=== PATIENT | male | born 1960 | race Caucasian/White ===

== ENCOUNTER 2023-10-15 08:04 | Emergency (ER) | payer OTHER, SELFPAY ==
--- NOTE | ~2023-10-15 | XR_ITS ---
EXAMINATION:XR foot RT min 3V VIEWS ACQUIRED: Frontal lateral and oblique CLINICAL INFORMATION: Reason for Exam pain COMPARISON: None available at the time of this dictation. FINDINGS: There is diffuse cortical thickening involving the diaphysis of the second third fourth and fifth metatarsal which could be indicative of underlying old prior stress fractures. No radiographic evidence of displaced fractures.. Intertarsal, tarsometatarsal, metatarsophalangeal and interphalangeal joints are intact. Surrounding soft tissues is normal. , XR/XR foot RT min 3V IMPRESSION: 1. Diffuse cortical thickening involving the diaphysis of the second third fourth and fifth metatarsals could be indicative of underlying old stress fractures. This could be further investigated with MRI or bone scan if clinically indicated. 2. No radiographic evidence of acute fracture.
[2023-10-15 08:07] VITALS: BP 165/90; PULSE 88; RESP 18; TEMP 36.1; O2SAT 98; BMI 32.1
--- NOTE | 2023-10-15 08:31 | ED_ITS ---
HPI - Extremity Problem General Chief complaint: Extremity Problem Stated complaint: R foot pain Time Seen by Provider: 10/15/23 08:22 Source: patient and RN notes reviewed Mode of arrival: ambulatory Limitations: no limitations History of Present Illness ED Provider: Lilia Marin PA-C [facility] Narrative: This is a 63-year-old male, with a history of hypertension, who presents emergency department with complaints of right foot pain. Patient states that in the 1980s he fractured his 2nd and 3rd metatarsal, which healed without any problems. Patient states that since yesterday he has noticed worsening plantar pain. He states that over the last several weeks he has felt as though he has had a marble in his shoe on the ball of his foot. He states that since yesterday he has had diffuse pain throughout the bottom of his foot. He endorses some slight numbness/tingling. No new trauma or injury. He states that his pain is worse in the morning, and worsens when he sits for prolonged period of time and stands back up onto his right foot. He denies any recent changes in shoe wear or prolonged walking or standing. Denies fevers, chills, chest pain, shortness breath, calf pain, swelling. He has been using ice and took ibuprofen 400 mg with some relief. No other complaints or concerns at this time. MD Complaint: extremity pain Onset (ago): day(s) Pain Consistency: constant Location: right and lower extremity Quality: aching Radiation: none Relieving factors: nothing Exacerbating factors: nothing Associated symptoms: denies other symptoms Related Data Previous Rx's ?Medication ?Instructions ?Recorded amlodipine 2.5 mg tablet 2.5 mg PO DAILY 90 days #90 tabs 04/26/21 benazepril 10 mg tablet 10 mg PO DAILY 90 days #90 tabs 04/26/21 ibuprofen 600 mg tablet 600 mg PO Q6H PRN pain #30 tabs 10/15/23 Allergies Allergy/AdvReac Type Severity Reaction Status Date / Time amoxicillin Allergy Unknown Hives Verified 10/15/23 08:10 Sulfa (Sulfonamide Allergy Unknown hives Verified 10/15/23 08:10 Antibiotics) Seasonal Allergy Unknown Hives Uncoded 10/15/23 08:10 Review of Systems Review of Systems: Yes all other systems are reviewed and are negative Constitutional: Constitutional: Reports as per [facility] Past Medical History Attestation statement: The following information was validated with the patient. Social History Social History Advance Directives: No Advance Directives Information Provided: No Physical Exam 2 Vital Signs: Vital Signs: Last Vital Signs Temp 97 F 10/15/23 08:07 Pulse 88 10/15/23 08:07 Resp 18 10/15/23 08:07 BP 165/90 H 10/15/23 08:07 Pulse Ox 98 10/15/23 08:07 O2 Del Method Room Air 10/15/23 08:07 BMI result Body Mass Index 32.1 Const: General: cooperative, comfortable and no acute distress Orientation/consciousness: patient oriented x3 Limitations: no limitations HEENT: Head: Yes normal to inspection, Yes normocephalic and Yes atraumatic Ears: hearing grossly normal bilaterally General nose exam: Normal external nose present Face and sinus: Yes normal facial exam Mouth: Normal oral and palatal mucosa present, oropharynx normal and moist mucous membranes Throat: Yes posterior oropharynx normal Eyes: General: appearance normal, both eyes and all related structures Eyelids: Yes eyelids normal Conjunctivae: conjunctivae normal Sclerae: sclerae normal Pupils: Equal, round and reactive pupils present EOM: EOMs intact bilaterally Neck: Neck: Yes normal visual inspection, Yes full ROM and Yes no lymphadenopathy Lymphatic: no lymphadenopathy noted Chest: Chest palpation & inspection: normal inspection of the chest Resp: Effort & Inspection: normal respiratory effort and able to speak in complete sentences Cardio: Rate: regular rate Rhythm: regular rhythm Heart sounds: S1 normal heart sound present and S2 normal heart sound present GI: Inspection: Yes normal to inspection Skin: General skin exam: no rashes or lesions noted Trauma: no lacerations or abrasions Wounds: no wounds Neuro: General: patient oriented x3 and moves all extremities Cranial nerves: Yes Equal, round and reactive pupils present Extrem: Other: Right foot with tenderness palpation along the plantar fascia, no bony abnormalities or swelling. No surrounding erythema or warmth. Strong DP pulse. Full range of motion of the ankle joint without difficulty. No dorsal bony tenderness. General: Yes normal to inspection Right upper extremity: normal to inspection Left upper extremity: normal to inspection Right lower extremity: normal to inspection Left lower extremity: normal to inspection Course Reevaluation(s) Reevaluation #1: X-rays revealing diffuse cortical thickening involving the diaphysis of the 2nd 3rd, 4th, and 5th metatarsals, could be indicative of underlying old stress fractures. I reviewed this image with the patient, recommending Podiatry as well as primary care follow-up. Discharged on ibuprofen. It is unclear whether not this cortical thickening will be causing him test pain therefore patient will be following up outpatient. Treating as a inflammatory process, likely plantar fasciitis like pain, with ibuprofen. Given return precautions. He understands and agrees with plan. Patient stable for discharge. Time: 10:15 Medical Decision Making Medical Decision Making [facility] Narrative: This is a 63-year-old male who presents emergency department for evaluation of right foot pain x 2 days. On arrival, patient with no fevers or chills. He is tenderness palpation along the plantar fascia. No recent injury or trauma however did have fracture in his metatarsals in the 1980s. Differential diagnoses include pain arthralgia, gouty arthritis, stress fracture, plantar fasciitis, Murillo's neuroma. Given stress fracture as well as tenderness along plantar aspect, will obtain x-rays for further information. Plan: X-rays Differential Diagnosis Differential Diagnoses: The differential diagnosis associated with the presentation includes See above Radiology Impression Discussion of test interpretation with radiology: I have reviewed the radiologist's reading. Radiologist Impression: XR/XR foot RT min 3V IMPRESSION: 1. Diffuse cortical thickening involving the diaphysis of the second third fourth and fifth metatarsals could be indicative of underlying old stress fractures. This could be further investigated with MRI or bone scan if clinically indicated. 2. No radiographic evidence of acute fracture. Discharge Plan Discharge Clinical Impression: Foot pain, right Patient Disposition: Home, Self-Care Instructions: Plantar Fasciitis (ED), Arthralgia (ED), Plantar Fasciitis Exercises (ED) Additional Instructions: You were seen in the emergency department due to right foot pain. Your x-ray does not show any fractures, however you do have Diffuse cortical thickening involving the diaphysis of the second third fourth and fifth metatarsals could be indicative of underlying old stress fractures. Given this finding I am recommending you follow-up with your primary care physician and/or Podiatry for further management and evaluation of this. Please take ibuprofen as prescribed, rest, ice, elevate and use cane at home as needed for pain. If you develop any new or worsening symptoms including increased redness, swelling, fevers, pain, chest pain, shortness of breath, please return for re- evaluation. Prescriptions: New ibuprofen 600 mg tablet 600 mg PO Q6H PRN (Reason: pain) Qty: 30 0RF No Action amlodipine 2.5 mg tablet 2.5 mg PO DAILY 90 Days Qty: 90 0RF benazepril 10 mg tablet 10 mg PO DAILY 90 Days Qty: 90 0RF Referrals: Jose Enrique Ramirez MD [Physician] - Discharge Date/Time: 10/15/23 10:15 Print Language: Kazakh
--- NOTE | 2023-10-15 10:01 | PC.NURSE ---
PROVIDER AT BEDSIDE TO REVIEW RADIOLOGY RESULTS, DISCUSSED DISCHARGE CARE PLAN
[2023-10-15 10:14] VITALS: BP 165/90; PULSE 88; RESP 18; TEMP 36.1
== END 2023-10-15 10:15 | disposition home or self-care (01) ==
PROVIDERS: Emergency Provider Student in an Organized Health Care Education/Training Program; PCP Internal Medicine
DX: M79.671 Pain in right foot (principal); R93.7 Abnormal findings on diagnostic imaging of other parts of musculoskeletal system; I10 Essential (primary) hypertension; Z87.81 Personal history of (healed) traumatic fracture
CPT/HCPCS: 73630; 99283

== ENCOUNTER 2023-10-19 09:59 | Emergency (ER) | payer OTHER, SELFPAY ==
--- NOTE | ~2023-10-19 | XR_ITS ---
EXAMINATION: XR FOOT, RIGHT CLINICAL INFORMATION: Pain COMPARISON: 10/15/2023 TECHNIQUE: AP, lateral, and oblique views of the right foot. FINDINGS: There is mild periosteal reaction seen along with an mid diaphysis of fourth and third metatarsal tarsal bones. No evidence of fractures. Soft tissues unremarkable. There are no changes of osteoarthritis. 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
[2023-10-19 10:05] VITALS: BP 160/86; PULSE 82; RESP 20; TEMP 36.4; O2SAT 98; BMI 32.1
[2023-10-19 11:31] VITALS: BP 144/87; PULSE 89; RESP 20; TEMP 36.7; O2SAT 100
--- NOTE | 2023-10-19 11:37 | ED.LOWEXIN ---
HPI - Extremity Injury (Lower) General Chief Complaint: Extremity Injury, Lower Stated Complaint: foot problem , was seen sunday Time Seen by Provider: 10/19/23 11:31 Source: patient and RN notes reviewed Mode of arrival: ambulatory Limitations: no limitations History of Present Illness ED Provider: Lilia Marin PA-C HPI Narrative: This is a 63-year-old male, with a history of hypertension and follicular lymphoma, who presents emergency department complaints of acute on chronic right foot pain. Patient reports that over the last several months he has had worsening foot pain without any known trauma or injury. He was seen in the emergency department 4 days ago for this complaint and was diagnosed with plantar fasciitis and foot pain and was given a prescription for ibuprofen and referral to Podiatry. He has been taking the ibuprofen with good relief, he has not followed up with Podiatry. He states that when he was getting out of his vehicle yesterday he stepped and felt a popping sensation in the bottom of his foot. He has had increased pain and swelling in his foot. He also states that he noticed some increased redness to the bottom of his foot with a possible rash. He reports pain worsens with ambulation and with weight-bearing. He had a 3rd and 4th metatarsal fracture when he was a child which did require surgery, otherwise no other surgeries. He is otherwise feeling well. No fevers, chills, chest pain, shortness of breath breath, abdominal pain, nausea, vomiting or diarrhea. No other complaints or concerns at this time MD complaint: foot injury Onset (ago): day(s) Place: home Severity: moderate Relieving factors: NSAID, cold therapy, immobilization and rest Exacerbating factors: weight bearing and movement Context: walking Associated symptoms: snap/pop sensation Other symptoms: none Related Data Previous Rx's ?Medication ?Instructions ?Recorded amlodipine 2.5 mg tablet 2.5 mg PO DAILY 90 days #90 tabs 04/26/21 benazepril 10 mg tablet 10 mg PO DAILY 90 days #90 tabs 04/26/21 ibuprofen 600 mg tablet 600 mg PO Q6H PRN pain #30 tabs 10/15/23 Allergies Allergy/AdvReac Type Severity Reaction Status Date / Time amoxicillin Allergy Unknown Hives Verified 10/19/23 10:11 Sulfa (Sulfonamide Allergy Unknown hives Verified 10/19/23 10:11 Antibiotics) sulfamethoxazole Allergy Hives Verified 10/19/23 10:11 [From Bactrim] trimethoprim [From Bactrim] Allergy Hives Verified 10/19/23 10:11 Seasonal Allergy Unknown Hives Uncoded 10/15/23 08:10 Review of Systems Review of Systems: Yes all other systems are reviewed and are negative Constitutional: Constitutional: Reports as per [facility] Past Medical History Attestation statement: The following information was validated with the patient. Social History Social History Smoked in Last 30 Days: No Use of substances other than those prescribed or required for medical reasons: No Advance Directives: No Advance Directives Information Provided: No Do you have a plan to hurt others: No Plan Physical Exam Vital Signs: Vital Signs: Last Vital Signs Temp 98.1 F 10/19/23 11:31 Pulse 89 10/19/23 11:31 Resp 20 10/19/23 11:31 BP 144/87 H 10/19/23 11:31 Pulse Ox 100 10/19/23 11:31 O2 Del Method Room Air 10/19/23 11:31 BMI result Body Mass Index 32.1 Const: General: cooperative, comfortable and no acute distress Orientation/consciousness: patient oriented x3 Limitations: no limitations HEENT: Head: Yes normal to inspection, Yes normocephalic and Yes atraumatic Ears: hearing grossly normal bilaterally General nose exam: Normal external nose present Face and sinus: Yes normal facial exam Mouth: Normal oral and palatal mucosa present, oropharynx normal and moist mucous membranes Throat: Yes posterior oropharynx normal Eyes: General: appearance normal, both eyes and all related structures Eyelids: Yes eyelids normal Conjunctivae: conjunctivae normal Sclerae: sclerae normal Pupils: Equal, round and reactive pupils present EOM: EOMs intact bilaterally Neck: Neck: Yes normal visual inspection, Yes full ROM and Yes no lymphadenopathy Lymphatic: no lymphadenopathy noted Chest: Chest palpation & inspection: normal inspection of the chest Resp: Effort & Inspection: normal respiratory effort and able to speak in complete sentences Auscultation: clear to auscultation bilaterally, no crackles, no rales, no rhonchi and no wheezes Cardio: Rate: regular rate Rhythm: regular rhythm Heart sounds: S1 normal heart sound present and S2 normal heart sound present GI: Inspection: Yes normal to inspection Skin: General skin exam: no rashes or lesions noted Trauma: no lacerations or abrasions Wounds: no wounds Neuro: General: patient oriented x3 and moves all extremities Cranial nerves: Yes Equal, round and reactive pupils present Extrem: Other: Right foot, plantar aspect there is a vesicular rash noted in clusters, not in a dermatomal distribution. Measuring approximately 2 cm. No surrounding erythema or warmth. No drainage. Patient has tenderness palpation along the 5th metatarsal strong DP pulse. Achilles tendon is intact. General: Yes normal to inspection Right upper extremity: normal to inspection Left upper extremity: normal to inspection Right lower extremity: normal to inspection Left lower extremity: normal to inspection Medical Decision Making Medical Decision Making [facility] Narrative: This is a 63-year-old male, with a history of follicular lymphoma and hypertension who presents emergency department with complaints of plantar foot pain. He was seen several days ago was diagnosed with plantar fasciitis. He has been taking ibuprofen good relief however states yesterday he was walking and a popping sensation in the bottom of his foot. He also noticed a rash/redness in his mid foot. X-rays were performed, no acute bony abnormality seen. Patient has mild edema noted to the lateral aspect of his foot. Full range of motion of the ankle joint strong DP pulse. Vesicular rash noted to the plantar aspect, not in a dermatomal distribution. Patient seen and evaluated by attending physician, Dr. Leos. Patient is ambulatory with antalgic gait. Given that he has full range of motion of the ankle and foot without difficulty, advised to ice, rest, elevate, and take ibuprofen, also recommended Tylenol if needed. Will be placed in boot and advised to follow-up with podiatry. Patient given strict return precautions including increased redness, swelling, fevers, chills. He understands and agrees with plan. Patient stable for discharge. Differential Diagnosis Differential Diagnoses: The differential diagnosis associated with the presentation includes Plantar fasciitis, foot pain, tendon rupture, Achilles tendinitis, Independent Interpretation Interpretation: I reviewed the x-ray and agree with radiology report. Radiology Impression Discussion of test interpretation with radiology: I have reviewed the radiologist's reading. Radiologist Impression: FINDINGS: There is mild periosteal reaction seen along with an mid diaphysis of fourth and third metatarsal tarsal bones. No evidence of fractures. Soft tissues unremarkable. There are no changes of osteoarthritis. 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 Dictated By: April Lane MD Discharge Plan Discharge Clinical Impression: Foot pain, right Patient Disposition: Home, Self-Care Instructions: Arthralgia (ED) Additional Instructions: You were seen in the emergency department due to right foot pain. Please continue taking ibuprofen every 6 hours as needed for pain. Your x-rays of your right foot do not show any changes. Rest, ice, use walking boot and elevate your foot. Please call the skin tanner today for follow-up. Keep a close eye on your foot, please return if any increased redness, swelling, fevers, chills, chest pain, shortness of breath, or any other symptoms occur. Follow-up with your primary care physician. Prescriptions: No Action amlodipine 2.5 mg tablet 2.5 mg PO DAILY 90 Days Qty: 90 0RF benazepril 10 mg tablet 10 mg PO DAILY 90 Days Qty: 90 0RF ibuprofen 600 mg tablet 600 mg PO Q6H PRN (Reason: pain) Qty: 30 0RF Referrals: Jose Enrique Ramirez MD [Physician] - Print Language: Yoruba
[2023-10-19 13:32] VITALS: BP 144/87; PULSE 89; RESP 20; TEMP 36.7; O2SAT 100
== END 2023-10-19 14:31 | disposition home or self-care (01) ==
PROVIDERS: Emergency Provider Emergency Medicine; PCP Internal Medicine
DX: M79.671 Pain in right foot (principal); I10 Essential (primary) hypertension
CPT/HCPCS: 73630; 99283; 99284

== ENCOUNTER 2024-01-18 07:42 | Emergency (ER) | payer OTHER, SELFPAY ==
--- NOTE | ~2024-01-18 | CT_ITS ---
EXAMINATION: CT ABDOMEN AND PELVIS WITH CONTRAST CLINICAL INFORMATION: Follow-up prior abnormal imaging. COMPARISON: January 18, 2024 TECHNIQUE: Multidetector volumetric images were obtained from the superior aspect of the liver through the pubic symphysis following administration 85 mL of Omnipaque 350 intravenous contrast. Sagittal and coronal reformatted images were obtained on the technologist's workstation. Oral contrast: No This CT examination was performed using dose optimization techniques as appropriate, variously including the following: *Automated exposure control *Adjustment of mA and/or kV according to patient size (this includes techniques or standardized protocols for targeted exams where dose is matched to indication/reason for exam; i.e. extremities or head) *Use of iterative reconstruction technique DLP: 906 mGy-cm FINDINGS: LUNG BASES: The visualized lung bases are unremarkable. LIVER, GALLBLADDER, AND BILIARY TREE: The liver is decreased in attenuation. No focal hepatic lesion or biliary ductal dilatation is present. Gallstones. PANCREAS: Unremarkable. SPLEEN: Unremarkable. ADRENAL GLANDS: Unremarkable. KIDNEYS AND URETERS: The kidneys are symmetric in size and enhancement. There is a 1.9 x 2.1 x 2.5 cm hypoattenuating mass in the anterior interpolar region of the left kidney. There are right renal cysts which require no further imaging follow-up. No hydronephrosis or perinephric fluid collection. BLADDER: Unremarkable. GASTROINTESTINAL TRACT: Small and large bowel loops are of normal caliber. ABDOMINAL WALL: No significant hernia is appreciated. LYMPH NODES: Extensive mesenteric and retroperitoneal lymphadenopathy. Mesenteric stranding and edema. VASCULAR: There is rightward and anterior displacement of the abdominal aorta due to extensive retroperitoneal lymphadenopathy. There is anterior displacement of the left renal vein. There is marked attenuation of the left renal artery. PELVIC VISCERA: Small free fluid in the pelvis. OSSEOUS STRUCTURES: No destructive bone lesions. CT/CT abdomen pelvis w IV con IMPRESSION: Solid enhancing mass measuring 1.9 x 2.1 x 2.5 cm anterior interpolar region of the left kidney most likely representing neoplasm. This could represent lymphomatous infiltration. Urologic consultation is advised. 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 Anterior displacement of the left renal vein. Marked attenuation of the left renal artery. Electronically signed by: Chaim Miguel MD 01/18/2024 02:49 PM EDT
--- NOTE | ~2024-01-18 | CT_ITS ---
EXAMINATION: CT ABDOMEN AND PELVIS WITHOUT CONTRAST CLINICAL INFORMATION: Left flank pain. COMPARISON: None available. TECHNIQUE: Multidetector volumetric imaging was performed from the superior aspect of the liver through the pubic symphysis. Sagittal and coronal reformatted images were obtained on the technologist's workstation. This CT examination was performed using dose optimization techniques as appropriate, variously including the following: *Automated exposure control *Adjustment of mA and/or kV according to patient size (this includes techniques or standardized protocols for targeted exams where dose is matched to indication/reason for exam; i.e. extremities or head) *Use of iterative reconstruction technique DLP: 877 mGy-cm FINDINGS: LUNG BASES: No pleural or pericardial effusion. LIVER, GALLBLADDER, AND BILIARY TREE: The liver is enlarged and markedly decreased in attenuation. No biliary ductal dilatation is present. Gallstones. PANCREAS: No ductal dilatation. SPLEEN: Not enlarged. Splenule. ADRENAL GLANDS: No adrenal mass. KIDNEYS AND URETERS: The kidneys are symmetric in size. Punctate nonobstructing calculus in the interpolar region of the right kidney. No hydronephrosis or perinephric fluid collection. There is a 2.3 cm simple cyst lower pole right kidney for which no further imaging follow-up is needed. BLADDER: Underdistended. GASTROINTESTINAL TRACT: Wall thickening of the mid to distal duodenum with periduodenal stranding. No small bowel obstruction. Appendix is within normal limits. ABDOMINAL WALL: No significant hernia is appreciated. LYMPH NODES: There is significant stranding and edema at the root of the mesentery. There is lymphatic congestion with enlarged mesenteric lymph nodes measuring up to 1.6 x 2.0 cm. There are numerous enlarged retroperitoneal lymph nodes. There is an extensive left para-aortic conglomerate lymph node mass measuring at least 5.8 x 6.9 x 9.2 cm. The left renal vasculature may be compromised by this lymph node mass though evaluation is limited without intravenous contrast VASCULAR: No abdominal aortic aneurysm. PELVIC VISCERA: Unremarkable. OSSEOUS STRUCTURES: No destructive bone lesions. CT/CT abdomen pelvis wo IV con IMPRESSION: Extensive retroperitoneal and mesenteric lymphadenopathy. Extensive mesenteric stranding and edema. The possibility of lymphoma should be strongly considered. Punctate nonobstructing right renal calculus. No hydronephrosis. Hepatic steatosis. Findings were reviewed and discussed with ordering provider Bradley at 10:00 AM on 01/18/2024. Electronically signed by: Chaim Miguel MD 01/18/2024 10:15 AM EDT
[2024-01-18 07:45] VITALS: BP 165/82; PULSE 86; RESP 20; TEMP 36.6; O2SAT 98
--- NOTE | 2024-01-18 07:45 | ED_ITS ---
HPI - Abdominal Pain General Chief Complaint: Back Pain/Injury Stated Complaint: Kidney stone Time Seen by Provider: 01/18/24 07:44 Source: patient Mode of arrival: ambulatory Limitations: no limitations History of Present Illness HPI narrative: Patient is a 63-year-old male who presents to the emergency department for evaluation of left flank pain. He reports pain exacerbated while lying supine having difficulty sleeping at night and exacerbates with overhead extension of the left arm and lateral flexion of the torso. Expressed initial concern that this may be a kidney stone as he had a 5 mm stone on the right and 2009, however the pain he experienced at that time was much more severe than what he feels currently, additionally he has no symptoms. At this time he reports pain to be 1/10. No associated abdominal pain nausea vomiting or shortness of breath. He has been taking Tylenol at home and has not noticed much improvement. When asked he does admit that he does lifting and repetitive motion for work, and recalls feeling a sudden pain to this area when maneuvering a certain way into his smaller sedan. He does admit to a history of follicular lymphoma discovered in 2009 which resulted in a reported 3 in resection of his colon and has not underwent any further treatment. Related Data Previous Rx's ?Medication ?Instructions ?Recorded amlodipine 2.5 mg tablet 2.5 mg PO DAILY 90 days #90 tabs 04/26/21 benazepril 10 mg tablet 10 mg PO DAILY 90 days #90 tabs 04/26/21 ibuprofen 600 mg tablet 600 mg PO Q6H PRN pain #30 tabs 10/15/23 oxycodone 5 mg tablet 5 mg PO Q6H PRN pain #14 tabs 01/18/24 Allergies Allergy/AdvReac Type Severity Reaction Status Date / Time amoxicillin Allergy Unknown Hives Verified 01/18/24 07:52 Sulfa (Sulfonamide Allergy Unknown hives Verified 01/18/24 07:52 Antibiotics) sulfamethoxazole Allergy Hives Verified 01/18/24 07:52 [From Bactrim] trimethoprim [From Bactrim] Allergy Hives Verified 01/18/24 07:52 Seasonal Allergy Unknown Hives Uncoded 01/18/24 07:52 Review of Systems Review of Systems Yes all other systems are reviewed and are negative PMFSH Past Medical History Attestation statement: The following information was validated with the patient. Source: old records reviewed Social History Social History Smoked in Last 30 Days: No Use of substances other than those prescribed or required for medical reasons: No Advance Directives: No Advance Directives Information Provided: No Do you have a plan to hurt others: No Plan Physical Exam ED Vital Signs: Vital Signs - 24 hr 01/18/24 07:45 01/18/24 07:50 01/18/24 12:36 Temperature 97.9 F 97.7 F Pulse Rate 86 98 81 Respiratory Rate 20 18 16 Blood Pressure 165/82 H 173/92 H 145/85 H Pulse Oximetry 98 97 99 Oxygen Delivery Method Room Air Room Air Room Air 01/18/24 15:27 Temperature 97.9 F Pulse Rate 72 Respiratory Rate 17 Blood Pressure 159/87 H Pulse Oximetry 98 Oxygen Delivery Method Room Air BMI result Body Mass Index 31.6 Appearance: Alert.?Oriented to person, place and time. No acute distress.?Normal affect. Eyes: Pupils equal, round and reactive to light.? ENT: Pharynx normal.?? Neck: Normal inspection.? Neck supple.?? CVS: Heart sounds normal. Normal heart rate and rhythm.? Pulses normal.?? Respiratory: No respiratory distress.? Lung sounds clear to auscultation bilaterally?? Abdomen: Soft and non-tender. Normoactive bowel sounds. No pulsatile mass. Back: Tenderness upon palpation to left posterior lower thoracic region, mild, no significant CVAT.?? Skin: Skin warm and dry.? Normal skin color.? Extremities: No lower extremity edema.? No calf ttp? Neuro: Moves all extremities spontaneously. Sensation intact bilaterally. Ambulates with normal steady gait. Course Reevaluation(s) Reevaluation #1: Despite lidocaine he continues to endorse significant pain while lying supine or on the left side. reporting after 30 seconds pain is unbearable. Plan to obtain CT imaging for further evaluation at this time, patient is agreeable but does not want to receive IV contrast Time: 08:49 Reevaluation #2: Patient unfortunately has not been seen by Oncology through [facility] for approximately 4 years. Attempting to obtain most recent CT imaging results and oncology notes. CT today revealing extensive retroparitoneal and mesenteric lymphadenopathy with mesenteric stranding and edema, there is extensive left para-aortic conglomerate lymph node measuring at least 9.2 cm concern that this may have resultant compromise to the left renal vasculature. Time: 10:10 Reevaluation #3: As of yet have not received records from [facility]. I had an at length conversation with patient. At this time he tells me it actually has been quite longer since he has followed with Oncology. He believes it was rather before COVID started, reporting he was probably not seen since 2014. He also states that he began playing tennis and golf within the past 3 weeks and thinking about it now he does state that the pain is worse while playing. Given his history in the conglomerate lymph node of large size, and his unlikely ability to have follow-up imaging in the near future, he is agreeable at this time to have repeat CT scan with IV contrast to assess for vascular compromise. Reassuringly he has no compromised renal function, normal GFR, he is not anuric. Time: 11:12 Additional Reevaluation(s): 14:57 - CT abdomen pelvis with contrast revealing solid enhancing mass of the left kidney 1.9 X 2.1 X 2.5 cm likely representing a neoplasm, by patient's account he has a known 2 cm mass to the left kidney. Unfortunately we are still awaiting results from [facility] at this time. There is rightward and anterior displacement of the abdominal aorta due to extensive lymphadenopathy, anterior displacement of the left renal vein and marked attenuation of the left renal artery I reviewed this case with vascular, Dr. mendiola reviewed imaging and impression, advised for outpatient follow-up. Patient was updated on this plan of care. Medical Decision Making Medical Decision Making [facility] Narrative: Patient is a 63-year-old male past medical history of nephrolithiasis, follicular lymphoma s/p colon resection, no chemotherapy or radiation, has not followed with Oncology since approximately 2020 who presents emergency department for evaluation of left flank pain as per HPI Differential Diagnosis Differential Diagnoses: The differential diagnosis associated with the presentation includes Physical exam revealing less likely to be Muscular strain, reviewed with patient possibility of nephrolithiasis, hydronephrosis, ureteral calculi serum labs and urinalysis are being obtained. No associated respiratory symptoms, LS CTA, no hypoxia, suspect less likely pain secondary to pneumonia. No rashes or lesions to suggest herpes zoster Admission/Observation Consideration of admission/observation: Escalation of care including admission/observation considered Lab Data [facility] Lab Attestation statement: I reviewed the patient's lab results. Urinalysis without evidence of infection or microscopic hematuria. CBC without leukocytosis, anemia, or thrombocytopenia. No electrolyte derangement. No ANASTACIA. LFTs unremarkable. 01/18/24 08:06 01/18/24 08:06 Labs: Lab Results 01/18/24 01/18/24 Range/Units 08:06 08:08 WBC 6.7 (4.8-10.8) X10*3/uL RBC 4.98 (4.60-5.80) X10*6/uL Hgb 15.4 (14.0-18.0) g/dl Hct 43.5 (42.0-52.0) % MCV 87.3 (80.0-98.0) fL MCH 30.9 (27.0-33.0) pg MCHC 35.4 (31.0-36.0) g/dl RDW 12.6 (11.0-16.0) % Plt Count 278 (160-400) X10*3/uL MPV 9.4 (9.4-12.4) fL Immature Gran % (Auto) 0.3 (0.0-0.4) % Neut % (Auto) 73.4 H (45-73) % Lymph % (Auto) 15.2 L (20-40) % [place] % (Auto) 8.4 (2-11) % Eos % (Auto) 1.8 (0-4) % Baso % (Auto) 0.9 (0-2) % Lymph # (Auto) 1.0 L (1.2-4.9) X10*3/uL [place] # (Auto) 0.6 (0.1-1.2) X10*3/uL Eos # (Auto) 0.1 (0.0-0.4) X10*3/uL Baso # (Auto) 0.1 (0.0-0.2) X10*3/uL Abs Immat Gran (auto) 0.02 (0.00-0.03) X10*3/uL Absolute Neuts (auto) 4.9 (2.0-8.3) x10*3/uL Absolute Nucleated RBC 0.000 (0.0-0.012) X10*3/uL Nucleated RBC % (auto) 0.0 (0.0-0.2) /100WBC Sodium 138 (135-145) mmol/L Potassium 4.5 (3.3-5.1) mmol/L Chloride 103 (96-108) mmol/L Carbon Dioxide 26 (22-29) mmol/L Anion Gap 14 (12-20) BUN 14 (9-16) mg/dL Creatinine 0.91 (0.5-1.4) mg/dL Estim Creat Clear Calc 111.9 Estimated GFR > 60 Random Glucose 123 H (60-115) mg/dL Calcium 10.4 H (8.4-10.2) mg/dL Total Bilirubin 0.5 (0.0-1.0) mg/dL AST 20 (5-37) U/L ALT 26 (0-40) U/L Alkaline Phosphatase 87 (39-117) U/L Total Protein 8.1 H (6.5-8.0) g/dL Albumin 4.5 (3.5-5.0) g/dL Urine Color Yellow Urine Appearance Clear Urine pH 5.5 (5.0-9.0) Ur Specific [place] 1.020 (1.005-1.025) Urine Protein Trace (Neg-Trace) mg/dL Urine Glucose (UA) Negative (Negative) mg/dL Urine Ketones Negative (Negative) mg/dL Urine Blood Negative (Negative) Urine Nitrite Negative (Negative) Ur Leukocyte Esterase Negative (Negative) Radiology Impression Discussion of test interpretation with radiology: I have reviewed the radiologist's reading. Radiologist Impression: CT/CT abdomen pelvis wo IV con IMPRESSION: Extensive retroperitoneal and mesenteric lymphadenopathy. Extensive mesenteric stranding and edema. The possibility of lymphoma should be strongly considered. Punctate nonobstructing right renal calculus. No hydronephrosis. Hepatic steatosis. CT/CT abdomen pelvis w IV con IMPRESSION: Solid enhancing mass measuring 1.9 x 2.1 x 2.5 cm anterior interpolar region of the left kidney most likely representing neoplasm. This could represent lymphomatous infiltration. Urologic consultation is advised. 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 Anterior displacement of the left renal vein. Marked attenuation of the left renal artery. External Record Review External record reviewed: Outpatient record Tests considered The following testing was considered but not selected: Considered CT of the abdomen and pelvis, suspect less likely to have acute abdominal pathology, abdominal examination benign, no overt flank tenderness to suggest acute renal colic, serum labs and urinalysis reassuring. Medications Administered Discontinued Medications Generic Name Dose Route Start Last Admin Trade Name Freq PRN Reason Stop Dose Admin Iohexol 100 ml 01/18/24 11:42 01/18/24 11:42 Iohexol 350 Mg/Ml 100 Ml Infus..Btl IV 01/18/24 11:43 85 ml ONCE ONE Administration Lidocaine 1 patch 01/18/24 07:59 01/18/24 08:04 Lidocaine 4 % Patch Adh..Patch TRANSDERMA 01/18/24 08:00 1 patch ONCE ONE Administration Protocol Critical Care Time Critical Care Time Critical Care Time: Yes Total Critical Care Time: 35 Attestation: I personally attest to this critical care time spent taking care of the patient exclusive of all other billable procedures was approximately 35 minutes including initial evaluation of patient, ordering tests, medical consultation, documentation, re-evaluation. Discharge Plan Discharge Clinical Impression: Follicular lymphoma, Left renal mass Patient Disposition: Home, Self-Care Additional Instructions: You can take Tylenol 500 mg, 2 tablets (1,000mg) every 4-6 hours as needed for pain, but not to exceed 3 doses daily (3,000mg).? As discussed, it is unclear to me whether the lymph node involvement in imaging today has progressed or remained the same. We were unable to obtain records from [place]. Has been quite sometime since you have seen your oncologist, I recommended contacting their office to schedule follow-up, if you alternatively would prefer to follow-up through [facility] I have provided the contact information for our office. In addition contact Urology for re- evaluation/consultation As discussed the CT scan shows concern that there may be involvement of the vasculature to the kidney, it is recommended that you follow-up outpatient with our vascular doctor; Dr. Mendiola. Please contact these offices first thing Sunday to arrange for follow-up. Prescriptions: New oxycodone 5 mg tablet 5 mg PO Q6H PRN (Reason: pain) Qty: 14 0RF Rx Instructions: Partial Fill upon patient request. No Action amlodipine 2.5 mg tablet 2.5 mg PO DAILY 90 Days Qty: 90 0RF benazepril 10 mg tablet 10 mg PO DAILY 90 Days Qty: 90 0RF ibuprofen 600 mg tablet 600 mg PO Q6H PRN (Reason: pain) Qty: 30 0RF Referrals: [facility] Urology Services [Provider Group] [facility] Oncology/Hematology [Provider Group] Jovon Dalton MD [Primary Care Provider] - Tomi Mendiola MD [Physician] - Print Language: Italian
[2024-01-18 07:50] VITALS: BP 173/92; PULSE 98; RESP 18; TEMP 36.5; O2SAT 97; BMI 31.6
[2024-01-18] MEDS: Lidocaine 4 % Patch ADH..PATCH 1 PATCH TRANSDERMA (08:04)
--- NOTE | 2024-01-18 08:08 | PC.NURSE ---
Urine collected and sent as ordered.
[2024-01-18 08:10] LABS: Basophils Absolute Auto 0.1 X10*3/uL (0.0-0.2); Basophils Percent Auto 0.9 % (0-2); Eosinophils Absolute Auto 0.1 X10*3/uL (0.0-0.4); Eosinophils Percent Auto 1.8 % (0-4); Hematocrit 43.5 % (42.0-52.0); Hemoglobin 15.4 g/dl (14.0-18.0); Imm Gran Abs Auto 0.02 X10*3/uL (0.00-0.03); Imm Gran Pct Auto 0.3 % (0.0-0.4); Lymphocytes Percent Auto 15.2 % (20-40); MANUAL DIFF FLAG NO; Mean Corpuscular HGB Conc 35.4 g/dl (31.0-36.0); Mean Corpuscular Hemoglobin 30.9 pg (27.0-33.0); Mean Corpuscular Volume 87.3 fL (80.0-98.0); Mean Platelet Volume 9.4 fL (9.4-12.4); Monocytes Absolute Auto 0.6 X10*3/uL (0.1-1.2); Monocytes Percent Auto 8.4 % (2-11); Neutrophils Absolute Auto 4.9 x10*3/uL (2.0-8.3); Neutrophils Percent Auto 73.4 % (45-73); Platelet Count 278 X10*3/uL (160-400); Red Blood Count 4.98 X10*6/uL (4.60-5.80); Red Cell Distribution Width 12.6 % (11.0-16.0); White Blood Count 6.7 X10*3/uL (4.8-10.8)
[2024-01-18 08:15] LABS: Appearance Urine Clear; Color Urine Yellow; Glucose Urine UA Negative (Negative); Leukocyte Esterase Urine Negative (Negative); Nitrite Urine Negative (Negative); PH 5.5 (5.0-9.0); Urine Blood Negative (Negative); Urine Ketones Negative (Negative); Urine Protein Trace mg/dL (Neg-Trace)
[2024-01-18 08:24] LABS: Alanine Aminotransferase 26 U/L (0-40); Albumin Level 4.5 g/dL (3.5-5.0); Alkaline Phosphatase 87 U/L (39-117); Anion Gap 14 (12-20); Aspartate Amino Transferase 20 U/L (5-37); Bilirubin Total 0.5 mg/dL (0.0-1.0); Blood Urea Nitrogen 14 mg/dL (9-16); Calcium 10.4 mg/dL (8.4-10.2); Carbon Dioxide 26 mmol/L (22-29); Chloride 103 mmol/L (96-108); Creatinine Clr Calc Pharmacy 111.9; Estimated Glomerular Filt Rate > 60; Glucose Random 123 mg/dL (60-115); Potassium 4.5 mmol/L (3.3-5.1); Sodium 138 mmol/L (135-145); Total Protein 8.1 g/dL (6.5-8.0)
[2024-01-18] MEDS: iohexoL 350 MG/ML 100 ML INFUS..BTL IV (11:42)
[2024-01-18 12:36] VITALS: BP 145/85; PULSE 81; RESP 16; O2SAT 99
[2024-01-18 15:27] VITALS: BP 159/87; PULSE 72; RESP 17; TEMP 36.6; O2SAT 98
[2024-01-18 16:49] VITALS: BP 177/93; PULSE 74; RESP 18; TEMP 36.5; O2SAT 99
== END 2024-01-18 16:49 | disposition home or self-care (01) ==
PROVIDERS: Nurse Practitioner Family; Emergency Provider Emergency Medicine; PCP Internal Medicine
DX: C82.90 Follicular lymphoma, unspecified, unspecified site (principal); N28.9 Disorder of kidney and ureter, unspecified; R10.9 Unspecified abdominal pain; I10 Essential (primary) hypertension
CPT/HCPCS: 36415; 74176; 74177; 80053; 81003; 85025; 99284; Q9967